=== PATIENT | male | born 1945 | race Hispanic/Latino ===

== ENCOUNTER 2022-08-16 08:15 | Observation (INO) | payer MEDICARE ==
[2022-08-12 13:04] VITALS: BP 177/79
[2022-08-12 13:11] LABS: BASOPHILS % (AUTO) 0.7 % (0.0-5.0); EOSINOPHILS % (AUTO) 1.8 % (0.0-8.0); HEMATOCRIT 45.8 % (42-54); LYMPHOCYTES % (AUTO) 19.9 % (21.0-51.0); MEAN CORPUSCULAR HEMOGLOBIN 30.5 pg (27.0-33.0); MEAN CORPUSCULAR HGB CONC 35.2 g/dL (32.0-36.0); MEAN CORPUSCULAR VOLUME 86.7 fL (79-99); MONOCYTES % (AUTO) 11.6 % (3.0-13.0); PLATELET COUNT (AUTO) 178 K/uL (130-400); RED BLOOD CELL COUNT(AUTO) 5.28 MIL/uL (4.50-6.20); RED CELL DISTRIBUTION WIDTH 11.9 % (11.0-15.5)
[2022-08-12 13:20] LABS: CREATININE 1.3 mg/dL (0.5-1.5); POTASSIUM 3.9 mmol/L (3.5-5.1); PROTHROMBIN TIME 10.9 SEC (9.6-11.6)
[2022-08-12 13:22] LABS: PARTIAL THROMBOPLASTIN TIME 28.5 SEC (26.3-35.5)
[2022-08-16] VITALS (26 sets, daily range): BP systolic 117–176; BP diastolic 56–86
[~2022-08-16] VITALS: Ht 177.8 cm; Wt 76.9 kg
[~2022-08-16 08:15] MED LIST: ROPIVICAINE 250MG+KETOROLAC 15MG+EPINEPHRINE 0.3+CLONIDINE 80 IV PRN
[2022-08-16] MEDS: LACTATED RINGERS 1000ML 1,000 ML IV SCH ×2 (09:16→18:30)
[2022-08-16] MEDS: CEFAZOLIN SODIUM 1 GM VIAL IVPB SCH ×2 (09:17→13:10)
[2022-08-16] MEDS ORDERED: HYDR25TA PO (09:37)
[2022-08-16] MEDS ORDERED: FAMO40TA7 PO (09:37)
[2022-08-16] MEDS ORDERED: TRANEXAMIC ACID 1000MG/10ML ONE (11:22)
[2022-08-16] MEDS ORDERED: MIDAZOLAM HCL 1 MG/ML 2ML VIAL ONE (13:04)
[2022-08-16] MEDS ORDERED: FENTANYL CITRATE PF 50 MCG/1 ML 2ML VIAL ONE ×2 (13:09→14:11)
[2022-08-16] MEDS ORDERED: ROCURONIUM 10MG/1ML SYR 10 MG/ML ML ONE (13:09)
[2022-08-16] MEDS ORDERED: PROPOFOL 10 MG/ML 20ML VIAL IV ONE (13:09)
[2022-08-16] MEDS ORDERED: ONDANSETRON 4MG INJ ONE (13:09)
[2022-08-16] MEDS: 0.9%NACL 1000ML 1,000 ML IV SCH ×2 (13:30→23:04)
[2022-08-16] MEDS ORDERED: POTASSIUM CHLORIDE 10% ELIXIR 20 MEQ/15 ML UDCUP PO PRN (13:30)
[2022-08-16] MEDS ORDERED: HYDROCODONE/ACETAMINOPHEN 5/325 MG TAB PO PRN (13:30)
[2022-08-16] MEDS ORDERED: ONDANSETRON 4MG INJ IVP PRN (13:30)
[2022-08-16] MEDS ORDERED: LIDOCAINE HCL-MPF 1% 2ML VIAL IV PRN (13:30)
[2022-08-16] MEDS ORDERED: POTASSIUM CHLORIDE 20MEQ/100ML 100 ML IV PRN (13:30)
[2022-08-16] MEDS ORDERED: TRANEXAMIC ACID 1000MG/10ML IV ONE (13:30)
[2022-08-16] MEDS ORDERED: HYDROCODONE/ACETAMINOPHEN 10/325 MG TAB PO PRN (13:30)
[2022-08-16] MEDS ORDERED: EPHEDRINE SULFATE 50 MG/ML AMPULE ONE (13:36)
[2022-08-16] MEDS ORDERED: NEOSTIGMINE 5MG/5ML SYR IV ONE (15:23)
[2022-08-16] MEDS ORDERED: GLYCOPYRROLATE 1 MG/5 ML SYRINGE ONE (15:23)
[2022-08-16] MEDS ORDERED: MEPERIDINE-PF 25 MG/ML SYG ONE ×2 (15:52→16:01)
[2022-08-16] MEDS: ACETAMINOPHEN 1,000 MG/100 ML VIAL IV SCH ×2 (15:55→23:03)
[2022-08-16] MEDS ORDERED: MEPERIDINE-PF 25 MG/ML SYG IVP ONE (16:30)
[2022-08-16] MEDS: MORPHINE 4 MG SYG IVP PRN (17:06)
[2022-08-16] MEDS: IBUPROFEN 800MG + NS 250ML IV SCH (17:15)
[2022-08-16] MEDS: FAMOTIDINE 20MG TAB PO SCH (19:43)
[2022-08-16] MEDS: ASPIRIN 81 MG EC TAB PO SCH (19:43)
[2022-08-16] MEDS: CEFAZOLIN SODIUM 1 GM VIAL IVP SCH (23:04)
[2022-08-17 00:31] VITALS: BP 142/79
[2022-08-17] MEDS: IBUPROFEN 800MG + NS 250ML IV SCH ×2 (01:18→10:06)
[2022-08-17] MEDS: MORPHINE 4 MG SYG IVP PRN (04:01)
[2022-08-17 04:14] LABS: HEMATOCRIT 35.4 % (42-54); MEAN CORPUSCULAR HEMOGLOBIN 31.2 pg (27.0-33.0); MEAN CORPUSCULAR HGB CONC 36.2 g/dL (32.0-36.0); MEAN CORPUSCULAR VOLUME 86.3 fL (79-99); PLATELET COUNT (AUTO) 125 K/uL (130-400); RED CELL DISTRIBUTION WIDTH 11.9 % (11.0-15.5); WHITE BLOOD COUNT (AUTO) 6.5 K/uL (4.8-10.8)
[2022-08-17 04:28] LABS: CREATININE 1.2 mg/dL (0.5-1.5); POTASSIUM 3.2 mmol/L (3.5-5.1)
[2022-08-17 04:31] VITALS: BP 114/57
[2022-08-17] MEDS: ACETAMINOPHEN 1,000 MG/100 ML VIAL IV SCH (05:21)
[2022-08-17] MEDS: KCL 20 MEQ ERTAB PO PRN ×3 (05:58→15:06)
[2022-08-17] MEDS ORDERED: CEFAZOLIN SODIUM 2 GM VIAL ONE (07:52)
[2022-08-17 08:00] VITALS: BP 108/61
[2022-08-17] MEDS: CEFAZOLIN SODIUM 1 GM VIAL IVP SCH (08:00)
[2022-08-17] MEDS: FAMOTIDINE 20MG TAB PO SCH (08:10)
[2022-08-17] MEDS: ASPIRIN 81 MG EC TAB PO SCH (08:10)
[2022-08-17] MEDS ORDERED: HYDROCHLOROTHIAZIDE 25 MG TABLET PO SCH (09:00)
[2022-08-17] MEDS ORDERED: POLYETHYLENE GLYCOL 3350 17 GM POWD.PACK PO SCH (09:00)
[2022-08-17] MEDS: 0.9%NACL 1000ML 1,000 ML IV SCH (09:30)
[2022-08-17 12:00] VITALS: BP 144/63
[2022-08-19] MEDS ORDERED: BISACODYL 10 MG SUPP.RECT RC PRN (13:30)
== END 2022-08-17 15:10 | disposition home or self-care (01) ==
LOC: DAH 08:15 → DAHIP 08:16 → 4DH 16:40
PROVIDERS: ADMIT Orthopaedic Surgery; ATTEND Orthopaedic Surgery
DX: M17.11 Unilateral primary osteoarthritis, right knee (principal); Z20.822 Contact with and (suspected) exposure to COVID-19; I10 Essential (primary) hypertension; K21.9 Gastro-esophageal reflux disease without esophagitis; F32.A Depression, unspecified; Z79.899 Other long term (current) drug therapy
CPT/HCPCS: 80048 ×2; 85025; 85610; 85730; 87426; 36415 ×2; 93005; 87641; 27447; 0055T; 96376 ×2; 96365; 96366 ×2; 96375; 97039 ×2; 85027; 97161; 97116 ×2; 97530 ×2; A6260; J0171; J2795; J1885; J0735; C1776 ×4; G0378 ×21; A4663; J7030 ×2; A4649 ×4; J7120; J3010 ×2; J0690 ×4; J3490 ×4; J2710; J2250; J2704; J2405; J2270 ×2; J2175 ×2; J1741 ×3; G0168; A6255; A6254; A5120; A4215; A4223; A4222; A4221

== ENCOUNTER 2022-11-16 05:50 | Day surgery (SDC) | payer MEDICARE ==
[2022-11-15 14:08] LABS: BASOPHILS % (AUTO) 0.6 % (0.0-5.0); EOSINOPHILS % (AUTO) 3.4 % (0.0-8.0); HEMATOCRIT 44.1 % (42-54); LYMPHOCYTES % (AUTO) 19.7 % (21.0-51.0); MEAN CORPUSCULAR HEMOGLOBIN 30.6 pg (27.0-33.0); MEAN CORPUSCULAR HGB CONC 34.2 g/dL (32.0-36.0); MEAN CORPUSCULAR VOLUME 89.3 fL (79-99); MONOCYTES % (AUTO) 9.3 % (3.0-13.0); NEUTROPHILS % (AUTO) 66.2 % (40.0-77.0); PLATELET COUNT (AUTO) 165 K/uL (130-400); RED BLOOD CELL COUNT(AUTO) 4.94 MIL/uL (4.50-6.20); RED CELL DISTRIBUTION WIDTH 12.5 % (11.0-15.5); WHITE BLOOD COUNT (AUTO) 6.5 K/uL (4.8-10.8)
[2022-11-15 14:14] VITALS: BP 134/70
[2022-11-15 14:18] LABS: CREATININE 1.2 mg/dL (0.5-1.5); POTASSIUM 4.1 mmol/L (3.5-5.1)
[~2022-11-16] VITALS: Ht 172.7 cm; Wt 78.1 kg
[2022-11-16] VITALS (18 sets, daily range): BP systolic 112–148; BP diastolic 56–75
[~2022-11-16 05:50] MED LIST changes: +BENA10TA77 PO; +FAMO40TA7 PO; -ROPIVICAINE 250MG+KETOROLAC 15MG+EPINEPHRINE 0.3+CLONIDINE 80 IV PRN
[2022-11-16] MEDS ORDERED: CEFAZOLIN SODIUM 2 GM VIAL ONE (06:17)
[2022-11-16] MEDS ORDERED: LACTATED RINGERS 1000ML 1,000 ML IV ONE (06:17)
[2022-11-16] MEDS ORDERED: ROCURONIUM 10MG/1ML SYR 10 MG/ML ML ONE (07:12)
[2022-11-16] MEDS ORDERED: MIDAZOLAM HCL 1 MG/ML 2ML VIAL ONE (07:12)
[2022-11-16] MEDS ORDERED: SUCCINYLCHOLINE 200MG/10ML SYR ONE (07:12)
[2022-11-16] MEDS ORDERED: DEXAMETHASONE SOD PHOSPHATE 10MG/ML 1ML VIAL ONE (07:12)
[2022-11-16] MEDS ORDERED: LIDOCAINE PF 100MG/5ML (2%) SYRINGE 5ML ONE (07:12)
[2022-11-16] MEDS ORDERED: ONDANSETRON 4MG INJ ONE (07:12)
[2022-11-16] MEDS ORDERED: NEOSTIGMINE 5MG/5ML SYR IV ONE (07:12)
[2022-11-16] MEDS ORDERED: GLYCOPYRROLATE 1 MG/5 ML SYRINGE ONE (07:12)
[2022-11-16] MEDS ORDERED: PROPOFOL 10 MG/ML 20ML VIAL IV ONE (07:12)
[2022-11-16] MEDS ORDERED: FENTANYL CITRATE PF 50 MCG/1 ML 2ML VIAL ONE (07:13)
[2022-11-16] MEDS ORDERED: FAMOTIDINE 20MG VIAL IV ONE (07:25)
[2022-11-16] MEDS ORDERED: CALDOLOR 800MG+NS 250ML 250 ML IV SCH (07:30)
[2022-11-16] MEDS ORDERED: KETOROLAC 30MG VIAL (30MG/ML) ONE (08:00)
[2022-11-16] MEDS ORDERED: ROPIVACAINE 0.5% 5MG/ML 30ML IJ ONE (08:33)
[2022-11-16] MEDS ORDERED: LIDOCAINE HCL 400MG/20ML VIAL ONE (08:52)
[2022-11-16] MEDS ORDERED: EPHEDRINE SULFATE 50 MG/ML AMPULE ONE (08:56)
[2022-11-16] MEDS ORDERED: CALDOLOR 800MG+NS 250ML 250 ML IV ONE (09:44)
== END 2022-11-16 11:20 | disposition home or self-care (01) ==
LOC: DAH 05:50
PROVIDERS: ATTEND Orthopaedic Surgery
DX: T84.84XA Pain due to internal orthopedic prosthetic devices, implants and grafts, initial encounter (principal); Z20.822 Contact with and (suspected) exposure to COVID-19; M17.12 Unilateral primary osteoarthritis, left knee; I10 Essential (primary) hypertension; K21.9 Gastro-esophageal reflux disease without esophagitis; Y83.8 Other surgical procedures as the cause of abnormal reaction of the patient, or of later complication, without mention of misadventure at the time of the procedure; Y92.89 Other specified places as the place of occurrence of the external cause
CPT/HCPCS: 87426; 80048; 85025; 36415; 93005; 64447; 20680; 88300; 73564; A6260; A4663; J7120; J3490 ×4; J3010; J0330; J1100; J2710; J2001; J2250; J2704; J2405; J1885; J2795; J1741; J0690; A6223; A4649; A5120; A4215; A4223; A4222; A4221; A6450